=== PATIENT | female | born 1990 | race African-American/Black ===

== ENCOUNTER 2019-02-24 18:41 | Emergency (ER) | payer OTHER ==
[~2019-02-24] VITALS: Ht 170.2 cm; Wt 87.1 kg
[2019-02-24 18:56] VITALS: BP 133/62
--- NOTE | 2019-02-24 19:03 | NUR ---
PT AMBULATED TO ER BED 01
[2019-02-24 20:02] VITALS: BP 133/62
--- NOTE | 2019-02-24 20:02 | NUR ---
Patient discharged with v/s stable. Written and verbal after care instructions given and explained. Patient alert, oriented and verbalized understanding of instructions. Ambulatory with steady gait. All questions addressed prior to discharge. ID band removed. Patient advised to follow up with PMD. Rx of cipro, butorphanol given. Patient educated on indication of medication including possible reaction and side effects. Opportunity to ask questions provided and answered.
== END 2019-02-24 20:02 | disposition home or self-care (01) ==
LOC: MED 18:41
DX: G43.909 Migraine, unspecified, not intractable, without status migrainosus (principal); N39.0 Urinary tract infection, site not specified
CPT/HCPCS: 81002; 81025; 99283